=== PATIENT | female | born 1955 | race Caucasian/White ===

== ENCOUNTER 2016-11-14 04:19 | Emergency (ER) | payer OTHER ==
[2016-11-14 04:33] VITALS: BP 152/86
[2016-11-14] MEDS ORDERED: Albuterol/Ipratropium 3.0-0.5 MG/3 ML Neb Soln NEB ONE (04:41)
--- NOTE | 2016-11-14 04:57 | EDM.PDOC ---
ED HPI GENERAL MEDICAL PROBLEM - General Chief Complaint: Respiratory Problem Stated Complaint: BREATHING ISSUES/UTI Time Seen by Provider: 11/14/16 04:26 Source of Information: Reports: Patient History Limitations: Reports: No Limitations - History of Present Illness INITIAL COMMENTS - FREE TEXT/NARRATIVE: This is a 61-year-old female. She recently moved into an area that has a lot of mold and mildew. She uses a CPAP machine and apparently he got some mold and mildew in it and so she has not been using her CPAP machine for the last 5-6 days. She is noted increasing coughing and congestion and wheezing but she has no history of asthma or COPD. She complains of lots of sinus drainage and there is some flecks of blood in the sputum and the discharge has been noted. She also complains of some urinary tract symptoms not specifically burning but more frequency and hard to start and some incontinence. She was on Keflex and has one more day due to a urinary tract infection and she wants it rechecked. She's had no fever or chills she's had no nausea vomiting or diarrhea. She does cough quite a bit and talking makes her cough quite a bit. Chest Pain Score (Numeric/FACES): 9 - Related Data Allergies Allergy/AdvReac Type Severity Reaction Status Date / Time minocycline [From Minocin] Allergy Rash Verified 11/14/16 04:43 Sulfa (Sulfonamide Allergy Rash Verified 11/14/16 04:43 Antibiotics) Home Meds: Home Meds Anastrozole [Arimidex] 1 mg PO DAILY 11/14/16 [History] DULoxetine [Cymbalta] 120 mg PO BID 11/14/16 [History] Hydrochlorothiazide 50 mg PO DAILY 11/14/16 [History] Insulin Regular, Human [HumuLIN R] 80 units SQ TIDMEALS 11/14/16 [History] LORazepam 0.5 mg PO Q6H PRN 11/14/16 [History] Losartan Potassium [Cozaar] 100 mg PO DAILY 11/14/16 [History] Modafinil 100 mg PO DAILY 11/14/16 [History] metFORMIN HCl [Metformin HCl ER] 1,000 mg PO BID 11/14/16 [History] Past Medical History HEENT History: Reports: Cataract Cardiovascular History: Reports: Hypertension Gastrointestinal History: Reports: Other (See Below) Other Gastrointestinal History: obesity Genitourinary History: Reports: UTI, Recurrent Psychiatric History: Reports: Anxiety Endocrine/Metabolic History: Reports: Diabetes, Type II Social & Family History - Family History Family Medical History: Noncontributory - Tobacco Use Smoking Status *Q: Never Smoker Second Hand Smoke Exposure: No - Caffeine Use Caffeine Use: Reports: Coffee - Recreational Drug Use Recreational Drug Use: No ED ROS GENERAL - Review of Systems Review Of Systems: See Below Constitutional: Denies: Fever, Chills HEENT: Reports: Rhinitis, Sinus Problem, Throat Pain. Denies: Throat Swelling Respiratory: Reports: Shortness of Breath, Wheezing, Cough Cardiovascular: Denies: Chest Pain Endocrine: Reports: No Symptoms GI/Abdominal: Reports: No Symptoms : Reports: Dysuria, Frequency, Incontinence Musculoskeletal: Reports: No Symptoms Skin: Reports: No Symptoms Neurological: Reports: No Symptoms Psychiatric: Reports: No Symptoms Hematologic/Lymphatic: Reports: No Symptoms ED EXAM, GENERAL - Physical Exam Exam: See Below Exam Limited By: No Limitations General Appearance: Alert, WD/WN, No Apparent Distress Eye Exam: Bilateral Eye: Normal Inspection Ears: Normal External Exam, Normal Canal, Normal TMs Nose: Nasal Drainage, Clear Rhinorrhea Throat/Mouth: Normal Inspection, Normal Lips, Normal Oropharynx, Normal Voice, No Airway Compromise Head: Normocephalic Neck: Supple Respiratory/Chest: No Respiratory Distress, Wheezing, Other (She does have some inspiratory and expiratory wheezing scattered with minimal prolonged expiratory phase). No: Crackles, Rales, Rhonchi Cardiovascular: Regular Rate, Rhythm, No Murmur GI/Abdominal: Soft Back Exam: Full Range of Motion Extremities: Normal Inspection, Normal Range of Motion Neurological: Alert, Oriented Psychiatric: Normal Affect, Normal Mood Skin Exam: Warm, Dry Course - Vital Signs Last Recorded V/S: Last Vital Signs Temp 98.2 F 11/14/16 04:28 Pulse 99 11/14/16 04:28 Resp 16 11/14/16 04:28 BP 152/86 H 11/14/16 04:28 Pulse Ox 93 L 11/14/16 05:03 - Orders/Labs/Meds Orders: Active Orders 24 hr Category Date Time Status RT Aerosol Therapy [RC] ASDIRECTED Care 11/14/16 04:41 Active Chest 2V [CR] Stat Exams 11/14/16 04:40 Taken Rapid Strep w/culture conf [STREP SCRN A RAPID W CULT Lab 11/14/16 05:25 Ordered CONF] [RM] Stat cefTRIAXone 1 GM with Lidocaine 1% 2.1 ML IM Med 11/14/16 06:00 Ordered cefTRIAXone [Rocephin] 1 gm Lidocaine 1% [Xylocaine 1%] 2.1 ml IM Q24H Labs: Laboratory Tests 11/14/16 11/14/16 11/14/16 Range/Units 05:00 05:05 05:05 WBC 13.32 H (3.98-10.04) K/mm3 RBC 4.32 (3.98-5.22) M/mm3 Hgb 12.6 (11.2-15.7) gm/L Hct 37.6 (34.1-44.9) % MCV 87.0 (79.4-94.8) fl MCH 29.2 (25.6-32.2) pg MCHC 33.5 (32.2-35.5) g/dl RDW Std Deviation 52.4 H (36.4-46.3) fL Plt Count 167 L (182-369) K/mm3 MPV 9.8 (9.4-12.3) fl Neut % (Auto) 65.2 (34.0-71.1) % Lymph % (Auto) 14.4 L (19.3-51.7) % [place] % (Auto) 17.3 H (4.7-12.5) % Eos % (Auto) 2.3 (0.7-5.8) Baso % (Auto) 0.3 (0.1-1.2) % Neut # (Auto) 8.69 H (1.56-6.13) K/mm3 Lymph # (Auto) 1.92 (1.18-3.74) K/mm3 [place] # (Auto) 2.31 H (0.24-0.36) K/mm3 Eos # (Auto) 0.30 (0.04-0.36) K/mm3 Baso # (Auto) 0.04 (0.01-0.08) K/mm3 Manual Slide Review Abnormal smear Sodium 136 (136-145) mEq/L Potassium 3.2 L (3.5-5.1) mEq/L Chloride 97 L (98-107) mEq/L Carbon Dioxide 30 (21-32) mEq/L Anion Gap 12.2 (5-15) BUN 22 H (7-18) mg/dL Creatinine 1.0 (0.55-1.02) mg/dL Est Cr Clr Drug Dosing 45.54 mL/min Estimated GFR (MDRD) 56 (>60) mL/min BUN/Creatinine Ratio 22.0 H (14-18) Glucose 157 H (80-115) mg/dL Calcium 9.1 (8.5-10.1) mg/dL Total Bilirubin 0.9 (0.2-1.0) mg/dL AST 28 (15-37) U/L ALT 28 (14-59) U/L Alkaline Phosphatase 73 (46-116) U/L Total Protein 6.9 (6.4-8.2) g/dl Albumin 3.0 L (3.4-5.0) g/dl Globulin 3.9 gm/dL Albumin/Globulin Ratio 0.8 L (1-2) Urine Color Yellow (Yellow) Urine Appearance Clear (Clear) Urine pH 7.0 (5.0-8.0) Ur Specific [place] 1.020 (1.005-1.030) Urine Protein 2+ H (Negative) Urine Glucose (UA) Negative (Negative) Urine Ketones Negative (Negative) Urine Occult Blood Trace-intact H (Negative) Urine Nitrite Negative (Negative) Urine Bilirubin Negative (Negative) Urine Urobilinogen 0.2 (0.2-1.0) Ur Leukocyte Esterase Trace H (Negative) Urine RBC 0-5 (0-5) /hpf Urine WBC 0-5 (0-5) /hpf Ur Epithelial Cells 0-5 (0-5) /hpf Urine Bacteria Few (FEW) /hpf Urine Mucus Not seen (FEW) /hpf Meds: Medications Discontinued Medications Generic Name Dose Route Start Last Admin Trade Name Freq PRN Reason Stop Dose Admin Albuterol/Ipratropium 3 ml 11/14/16 04:41 11/14/16 05:02 Duoneb 3.0-0.5 Mg/3 Ml NEB 11/14/16 04:42 3 ml ONETIME ONE Administration - Radiology Interpretation Free Text/Narrative:: Chest x-ray shows a right middle lobe infiltrate and possibly a left lower lobe infiltrate. - Re-Assessments/Exams Free Text/Narrative Re-Assessment/Exam: 11/14/16 05:58 I spoke to the patient and her regarding the x-ray findings as well as the CBC. I believe that she needs to be hospitalized for IV antibiotics and nebulizer treatments but they're traveling and they need to get home and they want to go home. So I'll provide a Rocephin shot and give them prescriptions for a Z-Oh may have strict instructions that once they get to where they are going her home they need to follow-up with her doctor. If she develops a fever they need to be seen right away and reassessed. They understand the seriousness of pneumonia. Departure - Departure Time of Disposition: 05:59 Disposition: Home, Self-Care 01 Condition: Fair Clinical Impression: Pneumonia involving right lung Qualifiers: Pneumonia type: due to unspecified organism Lung location: middle lobe of lung Qualified Code(s): J18.1 - Lobar pneumonia, unspecified organism Upper respiratory infection Qualifiers: URI type: unspecified URI Qualified Code(s): J06.9 - Acute upper respiratory infection, unspecified Reactive airway disease with wheezing Qualifiers: Asthma severity: mild persistent Asthma complication type: with acute exacerbation Qualified Code(s): J45.31 - Mild persistent asthma with (acute) exacerbation - Discharge Information Forms: ED Department Discharge Additional Instructions: Continue to drink lots of water, avoid coffee caffeine sugar and sodas, consider getting a decongestant like plain Claritin or Radha, do not give Claritin D or Radha D since will increase her blood pressure and also your eye pressure, use your inhaler 2 puffs every 4-6 hours for the wheezing, consider some Robitussin for your cough or cough lozenges, rest and sleep as much as possible, start the antibiotics Tuesday since the shot I gave you will last 24 hours, if you start running a fever you must be seen right away and reassessed for the severity of the pneumonia, return to this ER if needed - My Orders Last 24 Hours: My Active Orders 11/14/16 04:40 Chest 2V [CR] Stat 11/14/16 04:41 RT Aerosol Therapy [RC] ASDIRECTED 11/14/16 05:25 Rapid Strep w/culture conf [STREP SCRN A RAPID W CULT CONF] [RM] Stat 11/14/16 06:00 cefTRIAXone 1 GM with Lidocaine 1% 2.1 ML IM cefTRIAXone [Rocephin] 1 gm Lidocaine 1% [Xylocaine 1%] 2.1 ml IM Q24H - Assessment/Plan Last 24 Hours: My Active Orders 11/14/16 04:40 Chest 2V [CR] Stat 11/14/16 04:41 RT Aerosol Therapy [RC] ASDIRECTED 11/14/16 05:25 Rapid Strep w/culture conf [STREP SCRN A RAPID W CULT CONF] [RM] Stat 11/14/16 06:00 cefTRIAXone 1 GM with Lidocaine 1% 2.1 ML IM cefTRIAXone [Rocephin] 1 gm Lidocaine 1% [Xylocaine 1%] 2.1 ml IM Q24H
[2016-11-14] MEDS ORDERED: cefTRIAXone 1 GM, Lidocaine 1% 2.1 ML IM SCH ×2 (06:00)
--- NOTE | 2016-11-15 09:54 | CR ---
Chest: Two views of the chest were obtained. Comparison: No previous chest x-ray. Increased density is noted within the right midlung. Central lung markings are also diffusely increased. Heart size appears within normal limits. Upper mediastinum is within normal limits. Mild degenerative spurring is noted within the spine. Impression: 1. Increased density within the right midlung most likely representing pneumonia. Increased central lung markings are seen possibly due to bronchitis. Recommend follow-up chest x-ray several weeks after clinical therapy is complete to make sure that presumed pneumonia does not represent other abnormality. Diagnostic code #9
== END 2016-11-14 06:10 | disposition home or self-care (01) ==
LOC: JD.ED 04:19
DX: J18.9 Pneumonia, unspecified organism (principal); J06.9 Acute upper respiratory infection, unspecified; J45.31 Mild persistent asthma with (acute) exacerbation; I10 Essential (primary) hypertension; E11.9 Type 2 diabetes mellitus without complications; E66.9 Obesity, unspecified; Z87.440 Personal history of urinary (tract) infections; Z88.2 Allergy status to sulfonamides; Z88.8 Allergy status to other drugs, medicaments and biological substances; Z79.899 Other long term (current) drug therapy; Z79.4 Long term (current) use of insulin; Z79.84 Long term (current) use of oral hypoglycemic drugs; Z68.41 Body mass index [BMI] 40.0-44.9, adult
CPT/HCPCS: 36415; 71020; 80053; 81001; 85025; 87081; 87430; 94664; 96372; 99285; J0696; 99283

== ENCOUNTER 2016-11-15 07:05 | Emergency (ER) | payer OTHER ==
[2016-11-15] MEDS ORDERED: HYDROmorphone 0.5 MG/0.5 ML Syringe IVPUSH ONE (07:28)
[2016-11-15] MEDS ORDERED: Metoclopramide 10 MG/2 ML SDV IVPUSH ONE (07:29)
[2016-11-15] MEDS ORDERED: Dextrose 5%-0.9% NaCl 1,000 ML IV SCH ×2 (07:30→08:00)
[2016-11-15] MEDS ORDERED: cefTRIAXone 2 GM in Sodium Chloride 0.9% 100 ML IV SCH (07:30)
[2016-11-15] MEDS ORDERED: Ketorolac 30 MG/ML SDV IVPUSH SCH (07:30)
--- NOTE | 2016-11-15 07:30 | EDM.PDOC ---
ED HPI GENERAL MEDICAL PROBLEM - General Chief Complaint: Respiratory Problem Stated Complaint: PNEUMONIA NOT BETTER Time Seen by Provider: 11/15/16 07:17 Source of Information: Reports: Patient, Family (spouse) History Limitations: Reports: No Limitations - History of Present Illness INITIAL COMMENTS - FREE TEXT/NARRATIVE: 61-year-old female returns to the ED due to increased right-sided pleuritic chest pain fever chills and anorexia. Patient was seen to the ED on November [address] Gooden and diagnosed with a fairly extensive right middle lobar pneumonia. She was offered hospitalization but declined as they were planning on traveling to [place]. Her however her relates however he was extremely tired and exhausted and therefore elected not to travel yesterday she returns this morning more short of breath due to pleuritic right-sided chest pain. Sats are 98% on room air she is still coughing up dark green sputum. She takes some fluid yesterday but had No solids. Has had some fever and some chills. She has known history no known history of asthma or COPD. Has a lot of problems with sinus drainage is appreciated some flecks of blood in the sputum she was also having problems with suspect urinary tract infection not responding to oral antibiotic cephalexin which was rechecked as well. Of note she is a non-insulin- dependent type II diabetic. Using metformin. She is also a previous right breast cancer patient and is on Arimidex. She is also using insulin 80 units subcutaneous 3 times a day meals for diabetes control. White count yesterday was 13.32 with a left shift potassium was also slightly low at 3.2 at that time. Urinalysis shows 2+ protein but no signs of infection. Sugar yesterday was 157. Anion gap was 12.2. Onset: Gradual Onset Date: 11/11/16 Duration: Day(s):, Constant, Getting Worse Location: Reports: Chest (Paroxysmal productive cough with right-sided pleuritic chest pain underneath her previous right mastectomy scar.) Quality: Reports: Ache, Pressure, Sharp, Stabbing, Other Severity: Moderate (Pain is strongly pleuritic worsened by cough and deep breathing.) Improves with: Reports: Rest (Breathing shallowly.) Worsens with: Reports: Other, Movement (Coughing) Context: Denies: Activity, Exercise, Lifting, Sick Contact, Trauma, Other Associated Symptoms: Reports: Chest Pain, Cough, cough w sputum (See history of present illness), Diaphoresis ( dark green in color), Fever/Chills, Loss of Appetite, Malaise, Shortness of Breath, Weakness. Denies: Confusion, Headaches , Nausea/Vomiting, Rash, Seizure, Syncope Treatments CREDIT RISK SPECIALIST: Reports: Acetaminophen, Other (see below) Right Chest Pain Score (Numeric/FACES): 8 - Related Data Allergies Allergy/AdvReac Type Severity Reaction Status Date / Time minocycline [From Minocin] Allergy Rash Verified 11/15/16 07:21 Sulfa (Sulfonamide Allergy Rash Verified 11/15/16 07:21 Antibiotics) Home Meds: Home Meds Anastrozole [Arimidex] 1 mg PO DAILY 11/14/16 [History] DULoxetine [Cymbalta] 120 mg PO BID 11/14/16 [History] Hydrochlorothiazide 50 mg PO DAILY 11/14/16 [History] Insulin Regular, Human [HumuLIN R] 80 units SQ TIDMEALS 11/14/16 [History] LORazepam 0.5 mg PO Q6H PRN 11/14/16 [History] Losartan Potassium [Cozaar] 100 mg PO DAILY 11/14/16 [History] Modafinil 100 mg PO DAILY 11/14/16 [History] metFORMIN HCl [Metformin HCl ER] 1,000 mg PO BID 11/14/16 [History] Levofloxacin [Levaquin] 500 mg PO Q24H #10 tablet 11/15/16 [Rx] Past Medical History HEENT History: Reports: Cataract Cardiovascular History: Reports: Hypertension Gastrointestinal History: Reports: Other (See Below) Other Gastrointestinal History: obesity Genitourinary History: Reports: UTI, Recurrent Psychiatric History: Reports: Anxiety Endocrine/Metabolic History: Reports: Diabetes, Type II Social & Family History - Family History Family Medical History: Noncontributory - Tobacco Use Smoking Status *Q: Never Smoker Second Hand Smoke Exposure: No - Caffeine Use Caffeine Use: Reports: None - Recreational Drug Use Recreational Drug Use: No - Living Situation & Occupation Living situation: Reports: Occupation: Unemployed ED ROS GENERAL - Review of Systems Review Of Systems: See Below Constitutional: Reports: Fever, Chills, Malaise, Weakness, Fatigue, Decreased Appetite, Weight Loss HEENT: Reports: No Symptoms, Sinus Problem Respiratory: Reports: Shortness of Breath (Some sinus drainage.), Cough (Dark green in color paroxysmal intermittent cough), Sputum. Denies: Wheezing, Pleuritic Chest Pain ( On minimal exertion), Hemoptysis, Other Cardiovascular: Reports: Chest Pain, Blood Pressure Problem (Pleuritic right- sided chest pain.), Dyspnea on Exertion. Denies: Claudication, Edema, Lightheadedness, Orthopnea ( Chronic hypertension), Palpitations, PND, Syncope Endocrine: Reports: Fatigue GI/Abdominal: Reports: Decreased Appetite, Nausea. Denies: Diarrhea, Difficulty Swallowing, Hematemesis, Hematochezia, Melena, Stool Incontinence, Vomiting, Other : Reports: Frequency, Other (Slow to start urinary stream.) Musculoskeletal: Reports: Back Pain, Muscle Pain Skin: Reports: No Symptoms (Generalized myalgia) Neurological: Reports: No Symptoms Psychiatric: Reports: No Symptoms ED EXAM, GENERAL - Physical Exam Exam: See Below Exam Limited By: No Limitations General Appearance: Alert, WD/WN, Moderate Distress (Appears ill.) Eye Exam: Bilateral Eye: Normal Inspection Ears: Normal External Exam, Normal TMs Throat/Mouth: Other (Tongue is dry and coated. Lips are also dry and) Head: Atraumatic, Normocephalic ( rested.) Neck: Normal Inspection, Supple, Non-Tender, Full Range of Motion. No: Lymphadenopathy (L), Lymphadenopathy (R) Respiratory/Chest: No Accessory Muscle Use, Respiratory Distress (Mild tachypnea at rest.), Splinting, Other Cardiovascular: Normal Peripheral Pulses, Regular Rate, Rhythm, No Edema, No Gallop, No Murmur (Tenderness around the right anterior chest at previous mastectomy site.) Peripheral Pulses: 2+: Posterior Tibial (L), Posterior Tibial (R), Dorsalis Pedis (L), Dorsalis Pedis (R) GI/Abdominal: Normal Bowel Sounds, Soft, Non-Tender, No Organomegaly, No Distention, Other (Obese.) Extremities: Normal Inspection, Normal Range of Motion, Non-Tender, Normal Capillary Refill Neurological: Alert, Oriented, CN II-XII Intact, Normal Cognition, Normal Gait Psychiatric: Normal Affect, Normal Mood Skin Exam: Warm, Dry, Intact, Normal Color, No Rash Course - Vital Signs Last Recorded V/S: Last Vital Signs Temp 36.5 C 11/15/16 07:20 Pulse 93 11/15/16 07:20 Resp 26 H 11/15/16 07:20 BP 151/60 H 11/15/16 07:20 Pulse Ox 94 L 11/15/16 08:00 - Orders/Labs/Meds Orders: Active Orders 24 hr Category Date Time Status RT Aerosol Therapy [RC] ASDIRECTED Care 11/15/16 07:43 Active Dextrose 5%-0.9% NaCl [Dextrose 5%-Normal Saline] 1,000 Med 11/15/16 08:00 Active ml IV ASDIRECTED Ketorolac [Toradol] Med 11/15/16 07:30 Active 30 mg IVPUSH ONETIME cefTRIAXone [Rocephin] 2 gm Med 11/15/16 07:30 Active Sodium Chloride 0.9% [Normal Saline] 100 ml IV Q24H Medication Orders Ceftriaxone Sodium 2 gm/ (Sodium Chloride) 100 mls @ 200 mls/hr IV Q24H MILKA Last Admin: 11/15/16 07:40 Dose: 200 mls/hr Dextrose/Sodium Chloride (Dextrose 5%-Normal Saline) 1,000 mls @ 999 mls/hr IV ASDIRECTED MILKA Ketorolac Tromethamine (Toradol) 30 mg IVPUSH ONETIME MILKA Last Admin: 11/15/16 07:37 Dose: 30 mg Labs: Laboratory Tests 11/15/16 11/15/16 Range/Units 07:43 07:43 WBC 12.26 H (3.98-10.04) K/mm3 RBC 3.85 L (3.98-5.22) M/mm3 Hgb 11.4 (11.2-15.7) gm/L Hct 34.0 L (34.1-44.9) % MCV 88.3 (79.4-94.8) fl MCH 29.6 (25.6-32.2) pg MCHC 33.5 (32.2-35.5) g/dl RDW Std Deviation 52.9 H (36.4-46.3) fL Plt Count 138 L (182-369) K/mm3 MPV 9.2 L (9.4-12.3) fl Neutrophils % (Manual) 61 H (40-60) % Band Neutrophils % 7 (0-10) % Lymphocytes % (Manual) 24 (20-40) % Atypical Lymphs % 0 % Monocytes % (Manual) 6 (2-10) % Eosinophils % (Manual) 2 (0.7-5.8) % Basophils % (Manual) 0 L (0.1-1.2) Platelet Estimate Adequate RBC Morph Comment Normal Sodium 134 L (136-145) mEq/L Potassium 3.2 L (3.5-5.1) mEq/L Chloride 95 L (98-107) mEq/L Carbon Dioxide 30 (21-32) mEq/L Anion Gap 12.2 (5-15) BUN 24 H (7-18) mg/dL Creatinine 1.1 H (0.55-1.02) mg/dL Est Cr Clr Drug Dosing TNP Estimated GFR (MDRD) 50 (>60) mL/min BUN/Creatinine Ratio 21.8 H (14-18) Glucose 125 H (80-115) mg/dL Calcium 8.4 L (8.5-10.1) mg/dL Total Bilirubin 0.6 (0.2-1.0) mg/dL AST 30 (15-37) U/L ALT 24 (14-59) U/L Alkaline Phosphatase 67 (46-116) U/L C-Reactive Protein 18.8 H* (<1.0) mg/dL Total Protein 6.5 (6.4-8.2) g/dl Albumin 2.7 L (3.4-5.0) g/dl Globulin 3.8 gm/dL Albumin/Globulin Ratio 0.7 L (1-2) Meds: Medications Generic Name Dose Route Start Last Admin Trade Name Freq PRN Reason Stop Dose Admin Ceftriaxone Sodium 2 gm/ 100 mls @ 200 mls/hr 11/15/16 07:30 11/15/16 07:40 Sodium Chloride IV 200 mls/hr Q24H MILKA Administration Dextrose/Sodium Chloride 1,000 mls @ 999 mls/hr 11/15/16 08:00 Dextrose 5%-Normal Saline IV ASDIRECTED MILKA Ketorolac Tromethamine 30 mg 11/15/16 07:30 11/15/16 07:37 Toradol IVPUSH 30 mg ONETIME MILKA Administration Discontinued Medications Generic Name Dose Route Start Last Admin Trade Name Freq PRN Reason Stop Dose Admin Albuterol/Ipratropium 3 ml 11/15/16 07:43 11/15/16 08:00 Duoneb 3.0-0.5 Mg/3 Ml NEB 11/15/16 07:44 3 ml ONETIME ONE Administration Hydromorphone HCl 0.5 mg 11/15/16 07:28 11/15/16 07:39 Dilaudid IVPUSH 11/15/16 07:29 0.5 mg ONETIME ONE Administration Dextrose/Sodium Chloride 1,000 mls @ 999 mls/hr 11/15/16 07:30 11/15/16 07:40 Dextrose 5%-Normal Saline IV 999 mls/hr ASDIRECTED MILKA Administration Sodium Chloride 1,000 mls @ 999 mls/hr 11/15/16 07:45 Normal Saline IV ASDIRECTED MILKA Metoclopramide HCl 10 mg 11/15/16 07:29 11/15/16 07:35 Reglan IVPUSH 11/15/16 07:30 10 mg ONETIME ONE Administration - Radiology Interpretation Free Text/Narrative:: 61-year-old female returns to the ED due to increased pleuritic right-sided chest pain at site of diagnosed pneumonia 2 days ago. She has a right middle lobar pneumonia which she was treated with IV prior x-ray IM Rocephin in the ED as she plan on traveling to [place] and then onto [facility] where their home is. Her abdomen is entirely decided not to drive yesterday she had a very tough night with a lot of pleuritic sided right-sided chest pain and continues to have paroxysmal productive cough. She is an insulin-dependent diabetic type II. Can't eat any solids. Feels weak and lightheaded and dizzy. Blood sugar sugars are this morning. She did take some fluids yesterday but no solids. Afebrile the time of my initial assessment. O2 sats are 98% on room air. Repeat a reevaluation of the x-ray done yesterday yesterday doesn't back reveal a right middle lobar pneumonia. Plan will be to repeat Rocephin 2 g IV. We'll give her a DuoNeb treatment. She will also be given Toradol 30 mg IV for the pleuritic chest pain as well as Dilaudid 0.5 and Reglan 10 mg IV for relief of nausea. - Re-Assessments/Exams Free Text/Narrative Re-Assessment/Exam: 07/10/17 09:08 overall labs don't look much worse than they did yesterday. White count is 12.26 with 61% neutrophils and 7% bands. Hemoglobin is a little low at 11.4 hematocrit is 34.0 platelet his 138. Chemistry shows sodium 134 potassium low at 3.2. Chloride is 95 bicarbonate is 30. She is maintaining her sats at 97% on room air. CRP is elevated 18.8 glucose is 125. She is taking her insulin and she knows well to keep her sugars under control. For slowly she can eat and drink and take oral antibiotic she does not necessarily need to come into the hospital. Is better after receiving a liter of fluids. IV. She will now start Levaquin 500 mg once daily for the next 10 days with the first tablet to be taken tonight at supper time. They plan on leaving for [place] after discharge from the hospital. Departure - Departure Time of Disposition: 09:09 Disposition: Home, Self-Care 01 Condition: Fair Clinical Impression: Pneumonia Qualifiers: Pneumonia type: due to unspecified organism Laterality: right Lung location: middle lobe of lung Qualified Code(s): J18.1 - Lobar pneumonia, unspecified organism - Discharge Information Prescriptions: Levofloxacin [Levaquin] 500 mg PO Q24H #10 tablet Referrals: PCP,Not In Area [Primary Care Provider] - Forms: ED Department Discharge Additional Instructions: Evaluation in the emergency room today in regards to right-sided pneumonia identified on x-ray day before yesterday. So far you've been able to keep your blood sugars under control with use of insulin you're still able to eat and drink although appetite remains poor. It should start to return tomorrow. You' re treated with another dose of antibiotic intravenously today 2 g of Rocephin were given. His usually starts to clear up the pneumonia fairly rapidly and he should start to feel improved tomorrow. Suggest Aleve 2 tablets every 8 hours as needed for the right-sided chest pains. Reduce pain and inflammation and fever relief. Need to start antibiotic Levaquin 500 mg once daily for the next 10 days first tablet to be taken at suppertime tonight. Follow-up with your physical personal physician in 14 days time or sooner if she developed sugars that are uncontrolled unable to eat or drink etc. - My Orders Last 24 Hours: My Active Orders 11/15/16 07:30 Ketorolac [Toradol] 30 mg IVPUSH ONETIME cefTRIAXone [Rocephin] 2 gm Sodium Chloride 0.9% [Normal Saline] 100 ml IV Q24H 11/15/16 07:43 RT Aerosol Therapy [RC] ASDIRECTED 11/15/16 08:00 Dextrose 5%-0.9% NaCl [Dextrose 5%-Normal Saline] 1,000 ml IV ASDIRECTED - Assessment/Plan Last 24 Hours: My Active Orders 11/15/16 07:30 Ketorolac [Toradol] 30 mg IVPUSH ONETIME cefTRIAXone [Rocephin] 2 gm Sodium Chloride 0.9% [Normal Saline] 100 ml IV Q24H 11/15/16 07:43 RT Aerosol Therapy [RC] ASDIRECTED 11/15/16 08:00 Dextrose 5%-0.9% NaCl [Dextrose 5%-Normal Saline] 1,000 ml IV ASDIRECTED
[2016-11-15] MEDS ORDERED: Albuterol/Ipratropium 3.0-0.5 MG/3 ML Neb Soln NEB ONE (07:43)
[2016-11-15] MEDS ORDERED: Sodium Chloride 0.9% 1,000 ML IV SCH (07:45)
[2016-11-15 09:31] VITALS: BP 135/58
== END 2016-11-15 09:30 | disposition home or self-care (01) ==
LOC: JD.ED 07:05
DX: J18.9 Pneumonia, unspecified organism (principal); I10 Essential (primary) hypertension; E66.9 Obesity, unspecified; F41.9 Anxiety disorder, unspecified; E11.9 Type 2 diabetes mellitus without complications; Z88.2 Allergy status to sulfonamides; Z88.8 Allergy status to other drugs, medicaments and biological substances; Z79.4 Long term (current) use of insulin; Z87.440 Personal history of urinary (tract) infections; Z79.84 Long term (current) use of oral hypoglycemic drugs; Z79.899 Other long term (current) drug therapy; Z68.41 Body mass index [BMI] 40.0-44.9, adult
CPT/HCPCS: 36415; 80053; 85025; 86140; 94664; 96361; 96365; 96375; 99284; J0696; J1170; J1885; J2765; J7030; J7042; 99283